=== PATIENT | female | born 1970 | race Two or more races ===

== ENCOUNTER → 2017-11-25 | Outpatient (CLI) | payer OTHER ==
--- NOTE | 2017-11-25 12:05 | Diagnostic Imaging Report ---
PROCEDURE: Frontal and lateral views of the chest. COMPARISON: None. INDICATIONS: ANNUAL PHYSICAL FINDINGS: Lines/tubes: None. Lungs: The lungs are well inflated and clear. There is no evidence of pneumonia or pulmonary edema. Pleura: There is no pleural effusion or pneumothorax. Heart and mediastinum: Cardiac silhouette is unremarkable. Pulmonary vasculature is normal. Bones: No acute bony abnormality. Minimal age-related degenerative changes in the thoracic spine. IMPRESSION: 1. No acute cardiopulmonary abnormalities. Philip Hernandez M.D. Dictated by: Philip Hernandez M.D. on 11/25/2017 at 12:10 Electronically approved by: Philip Hernandez M.D. on 11/25/2017 at 12:10
--- NOTE | 2017-11-25 13:28 | Diagnostic Imaging Report ---
PROCEDURE:X-RAY LEFT SHOULDER, COMPLETE COMPARISON:None. INDICATIONS:LEFT SHOULDER PAIN FINDINGS: Normal mineralization. No acute, displaced fractures or dislocations. Triangular shaped calcification superior to the greater tuberosity. No lytic or blastic lesions. Glenohumeral joint is unremarkable. No a.c. separation. Visualized portions of the left lung are clear. Soft tissues are unremarkable. CONCLUSION: 1. No acute abnormalities. 2. Triangular shaped calcification superior to the greater tuberosity likely represents rotator cuff tendinous calcification. MRI of the shoulder is recommended if there is continued pain and clinical concern for ligamentous or cartilaginous injury. Philip Hernandez M.D. Dictated by: Philip Hernandez M.D. on 11/25/2017 at 13:33 Electronically approved by: Philip Hernandez M.D. on 11/25/2017 at 13:33
== END ==
LOC: RAD 11:11
PROVIDERS: ATTEND Internal Medicine
DX: Z00.00 Encounter for general adult medical examination without abnormal findings (principal); Z12.31 Encounter for screening mammogram for malignant neoplasm of breast; M25.512 Pain in left shoulder
CPT/HCPCS: 71046; 77067

== ENCOUNTER 2018-12-19 14:43 | Emergency (ER) | payer OTHER ==
[~2018-12-19] VITALS: Ht 167.6 cm; Wt 70.3 kg
--- OUTSIDE RECORDS SUMMARY | 2018-12-19 14:45 | XMS REPORT ---
Author [facility] Address Unknown Phone Unavailable Care Team Providers Care Driver License Reviewing Officer Name Role Phone THIAGO BAÑUELOS Unavailable Unavailable PAULA JOSE Unavailable Unavailable Payers Payer Name Policy Type Policy Number Effective Date Expiration Date Problems This patient has no known problems. Allergies, Adverse Reactions, Alerts This patient has no known allergies or adverse reactions. Medications This patient has no known medications. Results Test Description Test Time Test Comments Text Results Atomic Results Result Comments - US PELVIS COMPLETE 2018-05-29 11:22:00 Name: RUMA MARKHAM [facility] : 1970 Age/S: 47 / F [address] [facility] Unit #: [id number] Loc: [place] [address] Phys: Karoline Hinojosa MD Acct: [id number] Dis Date: Status: REG CLI PHONE #: [phone] Exam Date: 05/29/2018 1051 FAX #: [phone] Reason: PELVIC PAIN,MENORRHAGIA EXAMS: CPT CODE: [id number] US PELVIS COMPLETE 82827 HISTORY: Pelvic pain and menorrhagia. COMPARISON: None available. Transabdominal and transvaginal (for better endometrial and ovarian evaluation) pelvic ultrasound: The uterus is anteverted and measured 8.3 x 5.4 x 6.8 cm. Heterogeneous echogenicity and coarse texture. Thickened endometrium at 1.5 cm. Subendometrial cyst measured 6 mm. Correlate as to patient's menopausal status. Single discrete fibroid in the anterior uterine body measured 1.5 cm. Visualized cervix is unremarkable. Color and Doppler flow in either ovary with normal spectral waveform. Right ovary measured 1.8 x 1.2 x 1.5 cm. Left ovary measured 2 x 1.2 x 2.3 cm. No free fluid. IMPRESSION: Thickened endometrium at 1.5 cm. This is abnormal for postmenopausal woman. Correlate as to patient's menopausal status. Single discrete fibroid in the anterior uterine body measured 1.5 cm. Normal ovaries with color and Doppler flow. at 1122 Reported and signed by: Karl Mir M.D. CC: Karoline Hinojosa MD Technologist: [facility] Date/Time: 05/29/2018 (112) [email or web address] Orig Print D/T: S: 05/29/2018 (1125) Probe: PAGE 1 Signed Report - US TRANSVAGINAL NON OB 2018-05-29 11:22:00 Name: RUMA MARKHAM [facility] : 1970 Age/S: 47 / F [address] [facility] Unit #: [id number] Loc: [facility] [place] [address] Phys: Karoline Hinojosa MD Acct: [id number] Dis Date: Status: REG CLI PHONE #: [phone] Exam Date: 05/29/2018 1051 FAX #: [phone] Reason: PELVIC PAIN, MENORRHAGIA EXAMS: CPT CODE: [id number] [place] [address] HISTORY: Pelvic pain and menorrhagia. COMPARISON: None available. Transabdominal and transvaginal (for better endometrial and ovarian evaluation) pelvic ultrasound: The uterus is anteverted and measured 8.3 x 5.4 x 6.8 cm. Heterogeneous echogenicity and coarse texture. Thickened endometrium at 1.5 cm. Subendometrial cyst measured 6 mm. Correlate as to patient's menopausal status. Single discrete fibroid in the anterior uterine body measured 1.5 cm. Visualized cervix is unremarkable. Color and Doppler flow in either ovary with normal spectral waveform. Right ovary measured 1.8 x 1.2 x 1.5 cm. Left ovary measured 2 x 1.2 x 2.3 cm. No free fluid. IMPRESSION: Thickened endometrium at 1.5 cm. This is abnormal for postmenopausal woman. Correlate as to patient's menopausal status. Single discrete fibroid in the anterior uterine body measured 1.5 cm. Normal ovaries with color and Doppler flow. at 1122 Reported and signed by: Karl Mir M.D. CC: Karoline Hinojosa MD Technologist: Alea Jo RDMS Trn[facility] Date/Time: 05/29/2018 (112) [email or web address] Orig Print D/T: S: 05/29/2018 (112) Probe: [id number] PAGE 1 Signed Report SHOULDER LEFT COMPLETE 2017-11-25 13:33:00 [place] [address] Patient Name: RUMA GUEVARA MR #: [id number] : 1970 Age/Sex: 47/F Req #: [id number] Adm Physician: Ordered by: THIAGO BAÑUELOS MD Report #: [id number] Location: [facility] Room/Bed: Procedure: DX/SHOULDER LEFT COMPLETE Exam Date: 11/25/17 Exam Time: 114 REPORT STATUS: Signed PROCEDURE: X-RAY LEFT SHOULDER, COMPLETE COMPARISON: None. INDICATIONS: LEFT SHOULDER PAIN FINDINGS: Normal mineralization. No acute, displaced fractures or dislocations. Triangular shaped calcification superior to the greater tuberosity. No lytic or blastic lesions. Glenohumeral joint is unremarkable. No a.c. separation. Visualized portions of the left lung are clear. Soft tissues are unremarkable. CONCLUSION: 1. No acute abnormalities. 2. Triangular shaped calcification superior to the greater tuberosity likely represents rotator cuff tendinous calcification. MRI of the shoulder is recommended if there is continued pain and clinical concern for ligamentous or cartilaginous injury. Philip Hernandez M.D. Dictated by: Philip Hernandez M.D. on 11/25/2017 at 13:33 Electronically approved by: Philip Hernandez M.D. on 11/25/2017 at 13:33 Dictated By: PHILIP HERNANDEZ MD 1333 Transcribed By: JOLLY on 11/25/17 1333 COPY TO: THIAGO BAÑUELOS MD MAMMOGRAPHY DIGITAL SCR BILAT 2017-11-25 12:28:00 [place] [address] Patient Name: RUMA GUEVARA MR #: [id number] : 1970 Age/Sex: 47/F Req #: [id number] Adm Physician: Ordered by: THIAGO BAÑUELOS MD Report #: [id number] Location: [facility] Room/Bed: Procedure: [id number] MG/MAMMOGRAPHY DIGITAL SCR BILAT Exam Date: 11/25/17 Exam Time: 1133 REPORT STATUS: Signed #[id number] - MGSCRBIL #BILATERAL DIGITAL SCREENING MAMMOGRAM WITH CAD: 11/25/2017 CLINICAL: Routine screening. Comparison is made to exam dated: 08/15/2016 mammogram - [facility]. Current study contains 4 films. The tissue of both breasts is heterogeneously dense. This may lower the sensitivity of mammography. Current study was also evaluated with a Computer Aided Detection (CAD) system. There is a benign calcification in the left breast. No significant masses, calcifications, or other findings are seen in either breast. There has been no significant interval change. IMPRESSION: BENIGN There is no mammographic evidence of malignancy. A 1 year screening mammogram is recommended. The patient will be notified by letter of the results. Zhen lund/tadeo:12/03/2017 11:46:47 Alternative Financing Specialist: Lanie GOLDBERG)(Mariella), [facility] letter sent: Compared to Prior B9 Mammogram BI-RADS: 2 Benign Dictated By: ZHEN PRASAD DO 1146 Transcribed By: TADEO on 12/03/17 1146 COPY TO: THIAGO BAÑUELOS MD CHEST 2 VIEWS 2017-11-25 12:10:00 [place] [address] Patient Name: RUMA GUEVARA MR #: [id number] : 1970 Age/Sex: 47/F Req #: [id number] [facility] Physician: Ordered by: THIAGO BAÑUELOS MD Report #: [id number] Location: [facility] Room/Bed: Procedure: [id number] DX/CHEST 2 VIEWS Exam Date: 11/25/17 Exam Time: 1145 REPORT STATUS: Signed PROCEDURE: Frontal and lateral views of the chest. COMPARISON: None. INDICATIONS: ANNUAL PHYSICAL FINDINGS: Lines/tubes: None. Lungs: The lungs are well inflated and clear. There is no evidence of pneu monia or pulmonary edema. Pleura: There is no pleural effusion or pneumothorax. Heart and mediastinum: Cardiac silhouette is unremarkable. Pulmonary vasculature is normal. Bones: No acute bony abnormality. Minimal age-related degenerative changes in the thoracic spine. IMPRESSION: 1. No acute cardiopulmonary abnormalities. Philip Hernandez M.D. Dictated by: Philip Hernandez M.D. on 11/25/2017 at 12:10 Electronically approved by: Philip Hernandez M.D. on 11/25/2017 at 12:10 Dictated By: PHILIP HERNANDEZ MD 1210 Transcribed By: JOLLY on 11/25/17 1210 COPY TO: THIAGO BAÑUELOS MD PLATELET COUNT 2017-08-25 07:11:00 PLATELET COUNT (MELISSA) (test xhaw=653) 320 K/CU MM 150-450 [id number] 11:30:00* Test Item Value Reference Range Comments HEMOGLOBIN (MELISSA) (test rbkb=562) 11.2 GM/DL 11.2-15.7
--- OUTSIDE RECORDS SUMMARY | 2018-12-19 14:45 | XMS REPORT | Clinical Summary ---
Author Author [facility] Address Unknown Phone Unavailable Care Team Providers Care Dermatologist And Dermatopathologist Name Role Phone Fiona Mireles MD PCP Allergies No Known Allergies Medications End Date Status Medication Sig Dispensed Refills Start Date Active montelukast (SINGULAIR) Take 10 mg by 0 10 mg tablet mouth nightly. Active levocetirizine (XYZAL) 5 Take 5 mg by 0 MG tablet mouth every evening. Active fenofibrate Take 160 mg 0 (TRIGLIDE,LOFIBRA) 160 MG by mouth tablet daily. Active Problems Not on file Social History Date Tobacco Use Types Packs/Day Years Used Never Smoker Smokeless Tobacco: Never Used Alcohol Use Drinks/Week oz/Week Comments No Sex Assigned at Date Recorded Not on file Industry Job Start Date Occupation Not on file Not on file Not on file Travel End Travel History Travel Start No recent travel history available. Last Filed Vital Signs Not on file Plan of Treatment Not on file Results Not on fileafter 12/18/2017 Insurance Payer Benefit Subscriber ID Type Phone Address Plan / Group [employer] x[employer]x [employer] Advance Directives For more information, please contact: [facility] [address] [place] [address] Date Inactivated Comments Code Status Date Activated 08/28/2017 2:44 PM Full Code 08/28/2017 8:21 AM This code status was determined by: Patient
--- NOTE | 2018-12-19 15:10 | NUR ---
pt requests only female nurse for his
[2018-12-19] MEDS ORDERED: SODIUM CHLORIDE 0.9% 1000ML 1,000 ML IV STA (15:42)
[2018-12-19 16:10] LABS: BASOPHILS % 0.3 % (0.0-1.0); EOSINOPHILS # (AUTO) 0.3 (0.0-0.4); HEMATOCRIT 35.4 % (34.2-44.1); HEMOGLOBIN 11.3 g/dL (12.0-16.0); LYMPHOCYTES # (AUTO) 4.2 (1.0-3.2); MEAN CORPUSCULAR HEMOGLOBIN 27.2 pg (28-32); MEAN CORPUSCULAR HGB CONC 31.9 g/dL (31-35); MEAN CORPUSCULAR VOLUME 85.3 fL (81-99); MONOCYTES # (AUTO) 0.6 (0.2-0.8); MONOCYTES % 5.9 % (4.4-11.3); NEUTROPHILS # (AUTO) 4.3 (2.1-6.9); NEUTROPHILS % 45.7 % (38.7-80.0); PLATELET COUNT 254 x10e3/uL (140-360); RED BLOOD COUNT 4.15 x10e6/uL (3.6-5.1); RED CELL DISTRIBUTION WIDTH 14.3 % (11.7-14.4)
[2018-12-19 16:19] LABS: INR 0.97; PROTHROMBIN TIME 13.4 seconds (11.9-14.5)
[2018-12-19 16:20] LABS: PARTIAL THROMBOPLASTIN TIME 29.6 seconds (23.8-35.5)
[2018-12-19 16:28] LABS: ALANINE AMINOTRANSFERASE 14 IU/L (0-55); ALBUMIN 3.9 g/dL (3.5-5.0); ALBUMIN/GLOBULIN RATIO 1.3 (0.8-2.0); ALKALINE PHOSPHATASE 53 IU/L (40-150); ANION GAP 11.9 mmol/L (8-16); BLOOD UREA NITROGEN 11 mg/dL (7-26); BUN/CREATININE RATIO 19 (6-25); CARBON DIOXIDE 26 mmol/L (22-29); CHLORIDE 106 mmol/L (98-107); CREATININE, SERUM 0.57 mg/dL (0.57-1.11); EST GLOMERULAR FILTRATION RATE > 60 ML/MIN (60-); GLUCOSE 78 mg/dL (74-118); POTASSIUM 3.9 mmol/L (3.5-5.1); SODIUM 140 mmol/L (136-145)
[2018-12-19 17:17] LABS: BILIRUBIN,URINE NEGATIVE (NEGATIVE); CLARITY,URINE SL CLOUDY (CLEAR); COLOR,URINE RED (YELLOW); KETONES,URINE NEGATIVE (NEGATIVE); LEUKOCYTE ESTERASE ,URINE NEGATIVE (NEGATIVE); NITRITE,URINE NEGATIVE (NEGATIVE); PROTEIN,URINE DIPSTICK 1+ (NEGATIVE); URINE UROBILINOGEN 0.2 mg/dL (0.2 - 1)
[2018-12-19 17:20] LABS: PREGNANCY TEST, URINE NEGATIVE (NEGATIVE)
[2018-12-19 17:31] LABS: BACTERIA,URINE FEW /HPF; EPITHELIAL CELLS,URINE FEW /LPF; RBC,URINE >50 /HPF (0-5)
[2018-12-19 17:47] VITALS: BP 117/75
== END 2018-12-19 17:51 | disposition home or self-care (01) ==
LOC: ER 14:43
DX: N93.9 Abnormal uterine and vaginal bleeding, unspecified (principal); N92.1 Excessive and frequent menstruation with irregular cycle
CPT/HCPCS: 36415; 80053; 81001; 81025; 84702; 85025; 85610; 85730; 99283; J7030

== ENCOUNTER → 2020-03-14 | Outpatient (CLI) | payer OTHER | LOC: MAMMO 08:43 | PROVIDERS: ATTEND Obstetrics & Gynecology Obstetrics | DX: Z12.31 Encounter for screening mammogram for malignant neoplasm of breast (principal) | CPT/HCPCS: 77067 ==

== ENCOUNTER → 2020-07-03 | Outpatient (CLI) | payer OTHER | LOC: RAD 09:50 | PROVIDERS: ATTEND Family Medicine | DX: U07.1 COVID-19 (principal) | CPT/HCPCS: 71046 ==